=== PATIENT | female | born 1990 | race Caucasian/White ===

== ENCOUNTER 2018-07-25 12:53 | Outpatient (CLI) | payer OTHER ==
[2018-07-25] MEDS ORDERED: PREN-21 PO (16:14)
--- NOTE | 2018-07-25 16:27 | PN ---
Triage Information Date/Time July 25, 2018 Reason for visit: Patient here was sent from the office for RhoGam injection. Weeks of Gestation 28 weeks and 3 days /Para 1 para 0 Diabetes: none Hypertention: none Additional information 27-year-old with IUP at 28 weeks and 3 days with Rh- was sent from the clinic for RhoGam injection. Patient denies any vaginal bleeding during this . She denies any leaking of fluid decreased movement or uterine contractions. No complaint today. Objective Heart Rate: 130's Heart Rate Comments Appropriate for gestational age and category 1 Exam General appearance: Alert and oriented x4 does not appear to be in any acute distress obese Abdomen: Soft, gravid, fundal height appears to be consistent with gestational age NST: Appropriate for gestational age and category 1 No contraction of the monitor noted Blood group and type and screen was sent. Rh-, antibody screen negative Disposition: Discharge Assessment/Plan IUP at 28 weeks and 3 days Rh- Repeat blood type and antibody screen done today confirms that she is Rh- as well as antibody screen is negative No bleeding episodes during this Due for RhoGam injection. Based on ACOG guidelines RhoGam injection was given labor precautions kick count and bleeding precaution was given Patient advised to inform her primary OB office about this visit today and to keep her follow-up appointments Return to triage as needed for any concern including abnormal vaginal bleeding, uterine contraction, decreased movement or any other concerns ALMAS DYER MD Jul 25, 2018 16:27
--- NOTE | 2018-07-25 16:28 | TRIAGE ---
OB Triage Datetime Report Generated by CPN: 07/25/2018 16:27 Datetime: 07/25/2018 14:41 Time of Arrival: 07/25/2018 12:31 EGA: 28.3 Arrived By: Ambulatory Arrived From: Office Chief Complaint: Here from office for Rhogam injection Movement: Present Contractions: Denies/Absent Rupture of Membranes: Denies Vaginal Bleeding: Normal Show Vaginal Discharge: Denies Recent Sexual Intercouse: Denies Abdominal Trauma: Not Applicable Patient Complaints: None Time Provider Notified: 07/25/2018 16:05 Provider Notified: MD [place] Initial Plan: Rhogam injection, NST Datetime: 07/25/2018 14:33 Comments: NST DONE Datetime: 07/25/2018 14:32 Labor Evaluation Monitor Mode: External Resting Tone [place]: Relaxed Heart Rate FHR Baseline Rate: 145 Monitor Mode: External US FHR Baseline Changes: No Baseline Change Variability: Moderate 6-25 bpm Accelerations: 15X15 Decelerations: None Category: Category I Pain Assessment Pain Presence: None/Denies Datetime: 07/25/2018 14:08 Temperature Route: Oral Datetime: 07/25/2018 14:05 Assessment Type: Triage Maternal Assessment Level of Consciousness: Fully Conscious DTR's/Clonus: DTRs 2+; No Clonus Headache: Denies Blurred Vision: No Respiratory Effort: Unlabored; Regular Rhythm; Equal Expansion Breath Sounds, Left: Clear and Equal Breath Sounds, Right: Clear and Equal Nausea/Vomiting: Denies RUQ Epigastric Pain: Denies Lower Extremities Edema: Bilateral Lower Extremities Degree: 1+ Upper Extremities Edema: Bilateral Upper Extremities Degree: 1+ Facial Edema: None Fall Risk Assessment History of Falling: (0) No Secondary Diagnosis: (0) No Ambulatory Aid: (0) Bedrest/Nurse Assist IV Therapy: (0) No Gait: (0) Normal/Bedrest/Immobile Mental Status: (0) Oriented to Own Ability Fall Score: 0 Fall Risk Score Definition: No Risk: No action required Datetime: 07/25/2018 13:59 Comments: NST started Datetime: 07/25/2018 13:57 Stage of : OB Triage
== END 2018-07-25 16:20 | disposition home or self-care (01) ==
LOC: EDBD 12:53 → OBT 12:53 → L-D 12:55 → OBT 16:20
PROVIDERS: ATTEND Obstetrics & Gynecology
DX: O62.9 Abnormality of forces of labor, unspecified (principal); Z3A.28 28 weeks gestation of pregnancy
CPT/HCPCS: 86850; 86885; 86900; 86901; 96372; J2790; Z7500; G0463

== ENCOUNTER 2018-09-14 11:22 | Inpatient (IN) | payer OTHER ==
[~2018-09-14] VITALS: Ht 167.6 cm; Wt 124.5 kg
[~2018-09-14 11:22] MED LIST: PREN-21 PO
[2018-09-14 11:45] VITALS: BP 130/83; PULSE 121; Ht 167.6 cm; Wt 124.5 kg
[2018-09-14] MEDS: CEFAZOLIN 1 GM/50 ML (PMX) 50 ML IVPB SCH (16:12)
[2018-09-14] MEDS: LACTATED RINGER'S 1,000 ML IV SCH (16:12)
[2018-09-14] MEDS ORDERED: LIDOCAINE/MYLANTA 40 ML BTL PO ONE (19:00)
[2018-09-15] MEDS: LACTATED RINGER'S 1,000 ML IV SCH ×2 (00:17→08:27)
[2018-09-15] MEDS: CEFAZOLIN 1 GM/50 ML (PMX) 50 ML IVPB SCH ×3 (00:18→13:58)
--- NOTE | 2018-09-15 16:55 | PREOPHP ---
DATE OF ADMISSION: 09/14/2018 HISTORY OF PRESENT ILLNESS: This is a 28-year-old lady, 2, para 0 with 1 spontaneous abortio n, EDC of 10/14/2018 at 35 and 6/7 weeks, admitted to labor and delivery for observation and PIH work up. She had a blood pressure in the clinic of 152/103. She had care in [facility] office a nd the care was uneventful. She has a history of scoliosis and she wants to have a primary . PAST PERSONAL HISTORY: No history of diabetes, TB. She has a history of asthma. ALLERGIES: NO ALLERGIES. SOCIAL HISTORY: The patient does not smoke. She does not drink. MEDICATIONS: She does not take any drugs except her: 1. Iron. 2. Vitamins. GYNECOLOGIC HISTORY: She had menarche at the age of 8, every 28 days interval, 3 to 4 days duration and moderate in amount. FAMILY HISTORY: Grandmother on mother's side has diabetes. Family history of hypertension. OBSTETRIC HISTORY: She is 2, para 0. She had 1 spontaneous in 2002 at 1-1/2 months . REVIEW OF SYSTEMS: CARDIOVASCULAR: No chest pain. RESPIRATORY: No cough. GASTROINTESTINAL: No diarrhea, no vomiting. GENITOURINARY: No dysuria. PHYSICAL EXAMINATION: GENERAL: Reveals a conscious, coherent lady, in no acute distress. VITAL SIGNS: Her blood pressure on admission was 140/80, pulse rate 80 per minute, respirations 16 p er minute. BREASTS, HEART AND LUNGS: Within normal limits. ABDOMEN: Soft. Fundic height is 37 cm. heart tones are 140 per minute. PELVIC: Revealed the cervix to be closed. EXTREMITIES: 1+ pedal edema. Deep tendon reflexes are normal. ADMITTING DIAGNOSES: 1. A 35 and 6/7 weeks' intrauterine . 2. Rule out -induced hypertension. PLAN: The patient was planned to have PIH workup and 24-hour urine collection. The plans were expla ined to the patient and she understood everything totally. The risks, benefits and alternatives were discussed with her as well. Dictated By: JEWEL CHERRY/NTS Conf#: [id number] DID#: [id number]
--- NOTE | 2018-09-15 17:30 | DS ---
DATE OF ADMISSION: 09/14/2018 DATE OF DISCHARGE: 09/15/2018 HISTORY OF PRESENT ILLNESS: See dictated history and physical. PHYSICAL EXAMINATION: See dictated history and physical. ADMITTING DIAGNOSES: 1. A 35 and 6/7 weeks' intrauterine . 2. Rule out -induced hypertension. HOSPITAL COURSE: The patient was observed in the hospital. She was put on bed rest. Blood pressure was monitored and her blood pressure was always below 140/90. She had 24-hour urine collection and it was 170. The patient felt well. No headache, no contractions. No blurring of vision, no epigast jordan pain. She did not get any betamethasone. She received 4 doses of Ancef for her urinary tract in fection. She was discharged home on the first day of observation on general diet and activity was re stricted. She was counseled. She was instructed. She was told to come back to the clinic in 4 days . FINAL DIAGNOSES: 1. A 36 weeks' intrauterine . 2. Urinary tract infection. 3. Mild -induced hypertension. Dictated By: JEWEL CHERRY/MAX Conf#: [id number] DID#: [id number]
== END 2018-09-15 15:30 | disposition home or self-care (01) | DRG 832 ==
LOC: OBT 11:22 → L-D 11:23 → OBT 14:15 → L-D 14:15
PROVIDERS: ADMIT Obstetrics & Gynecology; ATTEND Obstetrics & Gynecology
DX: O13.3 Gestational [pregnancy-induced] hypertension without significant proteinuria, third trimester (principal); O23.43 Unspecified infection of urinary tract in pregnancy, third trimester; Z3A.36 36 weeks gestation of pregnancy
CPT/HCPCS: 76815; 76818; 80053; 81001; 82575; 84156; 84560; 85025; 85049; 85384; 85610; 85670; 85730; 87086; G0463; J0690; J7120

== ENCOUNTER 2018-10-02 11:43 | Inpatient (IN) | payer OTHER ==
[~2018-10-02] VITALS: Ht 167.6 cm; Wt 124.9 kg
[2018-10-02] MEDS ORDERED: METHYLERGONOVINE 0.2 MG INJ IM PRN ×2 (12:00→19:00)
[2018-10-02] MEDS ORDERED: OXYTOCIN 30 UNITS/LR 500 ML IV PRN ×2 (12:00→19:00)
[2018-10-02] MEDS ORDERED: OXYTOCIN 30 UNITS/LR 500 ML IV SCH ×2 (12:00→18:58)
[2018-10-02] MEDS ORDERED: CLINDAMYCIN 900 MG/D5W (PMX) 50 ML IVPB SCH (12:00)
[2018-10-02] MEDS ORDERED: MISOPROSTOL 200 MCG TAB PR PRN ×2 (12:00→19:00)
[2018-10-02] MEDS ORDERED: CARBOPROST 250 MCG INJ IM PRN ×2 (12:00→19:00)
[2018-10-02 12:34] VITALS: Ht 167.6 cm; Wt 124.9 kg
[2018-10-02] MEDS: LACTATED RINGER'S 1,000 ML IV SCH ×2 (13:03→16:29)
--- NOTE | 2018-10-02 15:25 | PREAC ---
Date/Time of Note Date/Time of Note DATE: 10/02/18 TIME: 15:24 Anesthesia Eval and Record Evaluation Time Pre-Procedure Interview DATE: 10/02/18 TIME: 15:24 Age 28 Sex female NPO: 8 hrs Preoperative diagnosis IUP 38 w Planned procedure c section Past Medical History Past Medical History: Includes Musculoskeletal: Other (scleiosis) GI: Morbid obesity Surgery & Anesthesia Issues No known issue Meds Anticoagulation: No Beta Anthony within 24 hr: No Reason Beta Anthony not given: Pt. not on B-Anthony Reported Medications [id number]/Iron Fumarate/FA/Dss ( 19 Tablet) 1 Each Tablet, 1 EACH PO, TAB 07/25/18 Current Medications Lactated Ringer's 1,000 ml @ 125 mls/hr Q8H IV Last administered on 10/02/18at 13:03; Admin Dose 125 MLS/HR; Start 10/02/18 at 11:47 Oxytocin/Lactated Ringer's 500 ml @ 125 mls/hr POST IV ; Start 10/02/18 at 12:00 Oxytocin/Lactated Ringer's 500 ml @ 0 mls/hr ONCE PRN IV .VAGINAL BLEEDING; Start 10/02/18 at 12:00 Methylergonovine Maleate (Methergine) 0.2 mg ONCE PRN IM .VAGINAL BLEEDING; Start 10/02/18 at 12:00 Carboprost Tromethamine (Hemabate) 250 mcg ONCE PRN IM .VAGINAL BLEEDING; Start 10/02/18 at 12:00 Misoprostol (Cytotec) 1,000 mcg ONCE PRN [place] .VAGINAL BLEEDING; Start 10/02/18 at 12:00 Citric Acid/ Sodium Citrate (Bicitra) 30 ml ONCE ONCE PO ; Start 10/02/18 at 15:30; Stop 10/02/18 at 15:31; Status UNV Meds reviewed: Yes Allergies Coded Allergies: Penicillins (Verified Allergy, Severe, rash, 09/14/18) VOMITTING AND DIARRHEA tramadol (Verified Allergy, Severe, 09/14/18) amoxicillin (Verified Allergy, Mild, rash, 08/22/18) Uncoded Allergies: penoicillin (Allergy, Mild, 07/25/18) rash (Adverse Reaction, Mild, 08/22/18) Allergies Reviewed: Yes Labs/Studies Labs Reviewed: Reviewed by anesthesiologist Result Diagram: 10/02/18 1245 10/02/18 1245 Laboratory Tests 10/02/18 12:45 Blood Bank Test 10/02/18 12:45 Antibody Screen NEGATIVE Blood Type A NEGATIVE Rh Immune Globulin Candidate NO test: Positive Studies: ECG (n/a), CXR (n/a) Pre-procedure Exam Airway: Adequate thyromental dist Mallampati: Mallampati III Teeth: Normal Lung: Normal Heart: Normal ASA Physical Status ASA physical status: 3 Emergency: None Planned Anesthetic General/MAC: ETT Neuraxial: Spinal Pre-operative Attestations Prior to commencing anesthesia and surgery, the patient was re-evaluated, there was verification of: *The patient's identity *The results of appropriate recent lab work and preoperative vital signs *The above evaluation not changing prior to induction *Anesthetic plan, risk benefits, alternative and complications discussed with patient/family; questions answered; patient/family understands, accepts and wishes to proceed. CATHY PALUMBO MD Oct 02, 2018 15:25
[2018-10-02] MEDS ORDERED: CITRIC ACID/NA CITRATE 30 ML CUP PO ONE (15:30)
[2018-10-02] MEDS ORDERED: ONDANSETRON 4 MG INJ ONE (17:09)
[2018-10-02] MEDS ORDERED: morphine SULFATE/PF (10 MG/10 ML) INJ ONE (17:09)
[2018-10-02] MEDS ORDERED: METOCLOPRAMIDE 10 MG INJ ONE (17:09)
[2018-10-02] MEDS ORDERED: KETOROLAC 30 MG INJ ONE (17:09)
--- NOTE | 2018-10-02 17:33 | PREOPHP ---
DATE OF ADMISSION: 10/02/2018 HISTORY OF PRESENT ILLNESS: This is a 28-year-old lady, 2, para 0 with 1 spontaneous abortio n, EDC of 10/14/2018 at 38-2/7 weeks, admitted to labor and delivery area in early labor for primary . The patient desires to have for history of scoliosis. She also has -i nduced hypertension and on no medication. Dr. Hennessy advised her to be delivered at around 38 weeks b ecause of her problem, but she is having contractions every 4 to 5 minutes. She had care in my [facility] office and the care was uneventful and being taken care of for mild -in duced hypertension. PAST PERSONAL HISTORY: No history of TB, asthma. ALLERGIES: NO ALLERGIES. SOCIAL HISTORY: The patient does not smoke. She does not drink. MEDICATIONS: She does not take any drugs except her: 1. Iron. 2. Vitamins. GYNECOLOGIC HISTORY: She had menarche at the age of 10, every 28 days interval, 3 to 4 days duration and moderate in amount. FAMILY HISTORY: Noncontributory. OBSTETRIC HISTORY: She is 2, para 1 with 1 . REVIEW OF SYSTEMS: CARDIOVASCULAR: No chest pains. RESPIRATORY: No cough. GASTROINTESTINAL: No diarrhea. No vomiting. GENITOURINARY: No dysuria. PHYSICAL EXAMINATION: GENERAL: Reveals a conscious, coherent lady and in no acute distress. VITAL SIGNS: Her blood pressure 140/80, pulse rate 80 per minute, respirations 16 per minute. BREASTS, HEART AND LUNGS: Within normal limits. ABDOMEN: Soft and obese. Fundic height 39 cm, weight is 265 pounds. PELVIC: Revealed the cervix to be closed, station floating in cephalic presentation with the bag of water intact. EXTREMITIES: No pedal edema. ADMITTING DIAGNOSES: 1. A 38-2/7 weeks' intrauterine in early labor. 2. Obesity. 3. Mild -induced hypertension. PLAN: The patient was planned to have the above procedure of primary . The procedures were explained to the patient and to her and both understood everything totally. The risks, bene fits and alternatives were discussed with her as well. The case was discussed with the anesthesiolog ist as well. If she cannot put the spinal then she will be put under general anesthesia. Dictated By: JEWEL CHERRY/MAX Conf#: [id number] [facility]#: [id number]
[2018-10-02] MEDS ORDERED: OXYTOCIN 30 UNITS/LR 500 ML IV ONE (18:19)
[2018-10-02] MEDS ORDERED: PHENYLephrine (100 MCG/ML) 10ML SYG ONE (18:22)
[2018-10-02] MEDS ORDERED: LACTATED RINGER'S 1,000 ML IV SCH (18:58)
--- NOTE | 2018-10-02 18:58 | OPPN ---
Date/Time of Note Date/Time of Note DATE: 10/02/18 TIME: 18:55 Operative Report Planned Procedure Procedure date Oct 02, 2018 Procedure(s) PRIMARY CSECTION Performed by see signature line Wire Taper: MASHA CRISTOBAL 2nd Wire Taper none Pre-procedure diagnosis 38 WEEKS IUP PIH SCOLIOSIS [id number] Anesthesia Type: [id number] spinal Post-Procedure Post-procedure diagnosis 38 WEEKS IUP PIH SCOLIOSIS Findings Live Baby GIRL, Apgars 9and 9, weight 7LBS 14OZ Estimated Blood Loss: 500 - 600 mls Specimen(s) none Grafts/Implant(s) PLACENTA Complication(s) none JEWEL AZEVEDO MD Oct 02, 2018 18:58
[2018-10-02] MEDS ORDERED: LANOLIN HPA 1 PKT TOP PRN (19:00)
[2018-10-02] MEDS ORDERED: METHYLERGONOVINE 0.2 MG TAB PO PRN (19:00)
[2018-10-02] MEDS ORDERED: KETOROLAC 30 MG INJ IV PRN (20:00)
[2018-10-02] MEDS ORDERED: DIPHENHYDRAMINE 50 MG INJ IV PRN (20:00)
[2018-10-02] MEDS ORDERED: NALOXONE (0.4 MG/ML) INJ IV PRN (20:00)
[2018-10-02] MEDS ORDERED: ONDANSETRON 4 MG INJ IV PRN ×2 (20:00)
[2018-10-02] MEDS ORDERED: morphine 2 MG INJ IV PRN ×3 (20:00)
[2018-10-02] MEDS ORDERED: morphine (1 MG/ML) 10ML SYRINGE IV PRN ×3 (20:00)
[2018-10-02] MEDS: SENNA/DOCUSATE NA (8.6MG/50MG) TAB PO SCH (21:00)
[2018-10-02 21:20] VITALS: BP 132/70; PULSE 75; RESP 20
[2018-10-03] MEDS: LACTATED RINGER'S 1,000 ML IV SCH ×3 (03:47→19:47)
[2018-10-03 04:25] VITALS: BP 121/71; PULSE 98; RESP 20
[2018-10-03 08:00] VITALS: BP 107/60; PULSE 107; RESP 20
[2018-10-03] MEDS: SENNA/DOCUSATE NA (8.6MG/50MG) TAB PO SCH ×2 (10:01→21:48)
[2018-10-03 12:00] VITALS: BP 108/62; PULSE 107; RESP 20
[2018-10-03 16:00] VITALS: BP 128/70; PULSE 101; RESP 19
--- NOTE | 2018-10-03 19:36 | PN ---
Date/Time of Note Date/Time of Note DATE: 10/03/18 TIME: 19:34 Assessment/Plan VTE Prophylaxis Risk score (from Ns)>0 risk: 3 SCD applied (from Ns): Yes Pharmacological prophylaxis: NA/contraindicated Pharm contraindication: low risk/ambulating Lines/Catheters IV Catheter Type (from Nrs): Saline Lock Assessment/Plan Assessment/Plan POSTCSECTION DAY 1 ORDERED ADVANCE DIET TOLERATED CBC ON 3RD POSTOP DAY Result Diagram: 10/03/18 0639 10/03/18 0639 Results 24hrs Laboratory Tests Test 10/03/18 06:39 10/03/18 06:44 White Blood Count 17.9 #H Red Blood Count 3.63 L Hemoglobin 11.0 L Hematocrit 32.6 L Mean Corpuscular Volume 89.8 Mean Corpuscular Hemoglobin 30.3 Mean Corpuscular Hemoglobin Concent 33.7 Red Cell Distribution Width 13.3 Platelet Count 322 # Mean Platelet Volume 9.5 Immature Granulocytes % 0.600 H Neutrophils % 71.7 Lymphocytes % 19.8 Monocytes % 6.4 Eosinophils % 0.9 Basophils % 0.6 Nucleated Red Blood Cells % 0.0 Immature Granulocytes # 0.100 H Neutrophils # 12.8 H Lymphocytes # 3.5 H Monocytes # 1.2 H Eosinophils # 0.2 Basophils # 0.1 Nucleated Red Blood Cells # 0.0 Sodium Level 135 Potassium Level 4.1 Chloride Level 105 Carbon Dioxide Level 24 Anion Gap 6 Blood Urea Nitrogen 9 Creatinine 0.62 Est Glomerular Filtrat Rate mL/min > 60 Glucose Level 81 Calcium Level 8.9 Lab Scanned Report REFERENCE LAB Subjective 24 Hr Interval Summary Free Text/Dictation POST CSECTION DAY 1 COMPLAIN OF INCISIONAL PAINS GOOD URINE OUTPUT PASSING GAS PER RECTUM NO BOWEL MOVEMENT YET Exam/Review of Systems Exam Vitals Vital Signs Date Temp Pulse Resp B/P (MAP) Pulse Ox O2 O2 Flow FiO2 Time Delivery Rate 10/03/18 98.1 101 19 128/70 98 Room Air 16:00 (89) Intake and Output 10/02/18 10/02/18 10/03/18 1515:00 23:00 07:00 IntakeIntake Total 2000 ml OutputOutput Total 105 ml 400 ml BalanceBalance 1895 ml -400 ml Exam VITAL SIGNS STABLE: YES AFEBRILE: YES BREAST NOT ENGORGED, NON-TENDER, NO APPRECIABLE MASS: YES LUNGS CLEAR, NO RALES, WHEEZES, RHONCHI: YES SINUS RHYTHM WITHOUT MURMUR: YES ABDOMEN: NON-TENDER FUNDUS: BELOW UMBILICUS BOWEL SOUNDS: PRESENT UTERUS: FIRM INCISION (CLEAN, DRY, AND INTACT): YES LOCHIA: LIGHT DEEP TENDON REFLEXES: 0 EXTREMITIES: NO CALF TENDERNESS EDEMA SCALE: NONE Results Results 24hrs Laboratory Tests Test 10/03/18 06:39 10/03/18 06:44 White Blood Count 17.9 #H Red Blood Count 3.63 L Hemoglobin 11.0 L Hematocrit 32.6 L Mean Corpuscular Volume 89.8 Mean Corpuscular Hemoglobin 30.3 Mean Corpuscular Hemoglobin Concent 33.7 Red Cell Distribution Width 13.3 Platelet Count 322 # Mean Platelet Volume 9.5 Immature Granulocytes % 0.600 H Neutrophils % 71.7 Lymphocytes % 19.8 Monocytes % 6.4 Eosinophils % 0.9 Basophils % 0.6 Nucleated Red Blood Cells % 0.0 Immature Granulocytes # 0.100 H Neutrophils # 12.8 H Lymphocytes # 3.5 H Monocytes # 1.2 H Eosinophils # 0.2 Basophils # 0.1 Nucleated Red Blood Cells # 0.0 Sodium Level 135 Potassium Level 4.1 Chloride Level 105 Carbon Dioxide Level 24 Anion Gap 6 Blood Urea Nitrogen 9 Creatinine 0.62 Est Glomerular Filtrat Rate mL/min > 60 Glucose Level 81 Calcium Level 8.9 Lab Scanned Report REFERENCE LAB Medications Medication Current Medications Lactated Ringer's 1,000 ml @ 125 mls/hr Q8H IV Last administered on 10/03/18at 12:34; Admin Dose 125 MLS/HR; Start 10/02/18 at 11:47 Oxytocin/Lactated Ringer's 500 ml @ 125 mls/hr POST IV ; Start 10/02/18 at 12:00 Oxytocin/Lactated Ringer's 500 ml @ 0 mls/hr ONCE PRN IV .VAGINAL BLEEDING; Start 10/02/18 at 12:00 Methylergonovine Maleate (Methergine) 0.2 mg ONCE PRN IM .VAGINAL BLEEDING; Start 10/02/18 at 12:00 Carboprost Tromethamine (Hemabate) 250 mcg ONCE PRN IM .VAGINAL BLEEDING; Start 10/02/18 at 12:00 Misoprostol (Cytotec) 1,000 mcg ONCE PRN [place] .VAGINAL BLEEDING; Start 10/02/18 at 12:00 Methylergonovine Maleate (Methergine) 0.2 mg Q6H PRN PO .VAGINAL BLEEDING; Start 10/02/18 at 19:00 Ibuprofen (Motrin) 800 mg Q8 PRN PO MILD PAIN LEVEL 1-3; Start 10/02/18 at 19:00 Simethicone (Mylicon) 160 mg Q8H PRN PO .GAS; Start 10/02/18 at 19:00 Senna/Docusate Sodium (Senokot-S) 1 tab BID PO Last administered on 10/03/18at 10:01; Admin Dose 1 TAB; Start 10/02/18 at 21:00 Lanolin (Lanolin Hpa) 1 applic BEDSIDE MEDICATION PRN TOP .NIPPLES; Start 10/02/18 at 19:00 Diphtheria/ Tetanus/Acell Pertussis (Adacel) 0.5 ml ONCE ONCE IM* ; Start 10/05 at 09:00; Stop 10/05/18 at 09:01 Measles/Mumps/ Rubella Vaccine Live (Mmr Ii Vaccine) 0.5 ml ONCE ONCE SC* ; Start 10/05/18 at 09:00; Stop 10/05/18 at 09:01 Oxytocin/Lactated Ringer's 500 ml @ 0 mls/hr ONCE PRN IV .VAGINAL BLEEDING; Start 10/02/18 at 19:00 Methylergonovine Maleate (Methergine) 0.2 mg ONCE PRN IM .VAGINAL BLEEDING; Start 10/02/18 at 19:00 Carboprost Tromethamine (Hemabate) 250 mcg ONCE PRN IM .VAGINAL BLEEDING; Start 10/02/18 at 19:00 Misoprostol (Cytotec) 1,000 mcg ONCE PRN [place] .VAGINAL BLEEDING; Start 10/02/18 at 19:00 Morphine Sulfate (morphine (REC)) 2 mg PACU ORDER PRN IV MILD PAIN 1-3; Start 10/02/18 at 20:00 Naloxone HCl (Narcan) 0.1 mg Q2M PRN IV .RESP RATE; Start 10/02/18 at 20:00; Stop 10/03/18 at 19:59 Ketorolac Tromethamine (Toradol) 30 mg Q6H PRN IV PAIN AFTER CSECTION Last administered on 10/03/18at 12:33; Admin Dose 30 MG; Start 10/02/18 at 20:00; Stop 10/03/18 at 19:59 Morphine Sulfate (morphine) 3 mg Q2 PRN IV .BREAKTHROUGH PAIN; Start 10/02/18 at 20:00; Stop 10/03/18 at 19:59 Morphine Sulfate (morphine) 2 mg Q3H PRN IV .PAIN 1-5; Start 10/02/18 at 20:00; Stop 10/03/18 at 19:59 Morphine Sulfate (morphine) 4 mg Q3H PRN IV .PAIN 6-10; Start 10/02/18 at 20:00; Stop 10/03/18 at 19:59 Diphenhydramine HCl (Benadryl) 25 mg Q6H PRN IV .ITCHING Last administered on 10/02/18at 22:31; Admin Dose 25 MG; Start 10/02/18 at 20:00; Stop 10/03/18 at 19:59 Ondansetron HCl (Zofran Inj) 4 mg Q6H PRN IV .NAUSEA/VOMITING; Start 10/02/18 at 20:00; Stop 10/03/18 at 19:59 JEWEL AZEVEDO MD Oct 03, 2018 19:36
[2018-10-03 19:45] VITALS: BP 117/74; PULSE 108; RESP 16
--- NOTE | 2018-10-03 21:26 | PAC ---
Date/Time of Note Date/Time of Note DATE: 10/03/18 TIME: 21:26 Post-Anesthesia Notes Post-Anesthesia Note Last documented vital signs Vital Signs Date Temp Pulse Resp B/P (MAP) Pulse Ox O2 O2 Flow FiO2 Time Delivery Rate 10/03/18 98.1 101 19 128/70 98 Room Air 16:00 (89) Activity: WNL Respiratory function: WNL Cardiovascular function: WNL Mental status: Baseline Pain reasonably controlled: Yes Hydration appropriate: Yes Nausea/Vomiting absent: No CATHY PALUMBO MD Oct 03, 2018 21:26
--- NOTE | 2018-10-03 21:32 | OPPN ---
Date/Time of Note Date/Time of Note DATE: 10/03/18 TIME: 21:30 Anesthesia Follow up Anesthesia Follow up Last documented vital signs Vital Signs Date Temp Pulse Resp B/P (MAP) Pulse Ox O2 O2 Flow FiO2 Time Delivery Rate 10/03/18 98.1 101 19 128/70 98 Room Air 16:00 (89) Respiratory function: WNL Comments A 28 year F POD#1 under duramorph for post op pain is doing fine. No pain itching, headache, N/V. CATHY PALUMBO MD Oct 03, 2018 21:32
[2018-10-03] MEDS: IBUPROFEN 800 MG TAB PO PRN (22:20)
[2018-10-04] MEDS: LACTATED RINGER'S 1,000 ML IV SCH (03:47)
[2018-10-04 04:25] VITALS: BP 101/63; PULSE 84; RESP 16
[2018-10-04] MEDS: IBUPROFEN 800 MG TAB PO PRN ×3 (06:26→21:00)
[2018-10-04 08:25] VITALS: BP 125/74; PULSE 114; RESP 20
[2018-10-04] MEDS: SENNA/DOCUSATE NA (8.6MG/50MG) TAB PO SCH ×2 (09:00→21:00)
[2018-10-04 16:00] VITALS: BP 132/83; PULSE 108; RESP 18
--- NOTE | 2018-10-04 16:43 | PN ---
Date/Time of Note Date/Time of Note DATE: 10/04/18 TIME: 16:41 Assessment/Plan VTE Prophylaxis Risk score (from Nsg)>0 risk: 3 SCD applied (from Nsg): No SCD contraindicated: low risk/ambulating Pharmacological prophylaxis: NA/contraindicated Pharm contraindication: low risk/ambulating Lines/Catheters IV Catheter Type (from Nrsg): Peripheral IV Assessment/Plan Assessment/Plan POST CSECTION DAY 2 HOME TOMORROW CBC TOMORROW COUNSELED INSTRUCTED PRESCRIPTION GIVEN FOR PAIN RETURN TO CLINIC IN 2 WEEKS CALL OFFICE IF THERE IS ANY PROBLEM OR CONCERN CONTINUE WITH VITAMINS OD AND FERROUS SULFATE 325MG PO TID DIET ADVISED Result Diagram: 10/03/1839 10/03/1839 Subjective 24 Hr Interval Summary Free Text/Dictation POST CSECTION DAY 2 LITTLE BOWEL MOVEMENT GOOD URINE OUTPUT FEELS LESS INCISIONAL PAINS Exam/Review of Systems Exam Vitals Vital Signs Date Temp Pulse Resp B/P (MAP) Pulse Ox O2 O2 Flow FiO2 Time Delivery Rate 10/04/18 98.7 114 20 125/74 Room Air 08:25 (91) 10/03/18 98 16:00 Intake and Output 10/03/18 10/03/18 10/04/18 1515:00 23:00 07:00 IntakeIntake Total 1120 ml 200 ml OutputOutput Total 1500 ml 1400 ml 500 ml BalanceBalance -1500 ml -280 ml -300 ml Exam VITAL SIGNS STABLE: YES AFEBRILE: YES BREAST NOT ENGORGED, NON-TENDER, NO APPRECIABLE MASS: YES LUNGS CLEAR, NO RALES, WHEEZES, RHONCHI: YES SINUS RHYTHM WITHOUT MURMUR: YES ABDOMEN: NON-TENDER FUNDUS: BELOW UMBILICUS BOWEL SOUNDS: PRESENT UTERUS: FIRM INCISION (CLEAN, DRY, AND INTACT): YES LOCHIA: LIGHT DEEP TENDON REFLEXES: 0 EXTREMITIES: NO CALF TENDERNESS EDEMA SCALE: NONE Medications Medication Current Medications Oxytocin/Lactated Ringer's 500 ml @ 0 mls/hr ONCE PRN IV .VAGINAL BLEEDING; Start 10/02/18 at 12:00 Methylergonovine Maleate (Methergine) 0.2 mg ONCE PRN IM .VAGINAL BLEEDING; Start 10/02/18 at 12:00 Carboprost Tromethamine (Hemabate) 250 mcg ONCE PRN IM .VAGINAL BLEEDING; Start 10/02/18 at 12:00 Misoprostol (Cytotec) 1,000 mcg ONCE PRN [place] .VAGINAL BLEEDING; Start 10/02/18 at 12:00 Methylergonovine Maleate (Methergine) 0.2 mg Q6H PRN PO .VAGINAL BLEEDING; Start 10/02/18 at 19:00 Ibuprofen (Motrin) 800 mg Q8 PRN PO MILD PAIN LEVEL 1-3 Last administered on 10/04/18at 13:20; Admin Dose 800 MG; Start 10/02/18 at 19:00 Simethicone (Mylicon) 160 mg Q8H PRN PO .GAS Last administered on 10/04/18 09:35; Admin Dose 160 MG; Start 10/02/18 at 19:00 Senna/Docusate Sodium (Senokot-S) 1 tab BID PO Last administered on 10/03/18at 21:48; Admin Dose 1 TAB; Start 10/02/18 at 21:00 Lanolin (Lanolin Hpa) 1 applic BEDSIDE MEDICATION PRN TOP .NIPPLES Last administered on 10/04/18 09:36; Admin Dose 1 APPLIC; Start 10/02/18 at 19:00 Diphtheria/ Tetanus/Acell Pertussis (Adacel) 0.5 ml ONCE ONCE IM* ; Start 10/05/18 at 09:00; Stop 10/05/18 at 09:01 Measles/Mumps/ Rubella Vaccine Live (Mmr Ii Vaccine) 0.5 ml ONCE ONCE SC* ; Start 10/05/18 at 09:00; Stop 10/05/18 at 09:01 Oxytocin/Lactated Ringer's 500 ml @ 0 mls/hr ONCE PRN IV .VAGINAL BLEEDING; Start 10/02/18 at 19:00 Methylergonovine Maleate (Methergine) 0.2 mg ONCE PRN IM .VAGINAL BLEEDING; Start 10/02/18 at 19:00 Carboprost Tromethamine (Hemabate) 250 mcg ONCE PRN IM .VAGINAL BLEEDING; Start 10/02/18 at 19:00 Misoprostol (Cytotec) 1,000 mcg ONCE PRN [place] .VAGINAL BLEEDING; Start 10/02/18 at 19:00 Morphine Sulfate (morphine (REC)) 2 mg PACU ORDER PRN IV MILD PAIN 1-3; Start 10/02/18 at 20:00 JEWEL AZEVEDO MD Oct 04, 2018 16:43
[2018-10-04 19:50] VITALS: BP 119/74; PULSE 110; RESP 18
[2018-10-05 04:00] VITALS: BP 112/76; PULSE 69; PULSE 95; RESP 17
[2018-10-05] MEDS: IBUPROFEN 800 MG TAB PO PRN ×2 (05:11→12:46)
[2018-10-05 08:50] VITALS: BP 123/78; PULSE 99; RESP 20
[2018-10-05] MEDS ORDERED: MEASLES,MUMPS,RUBELLA VACCINE INJ SC* ONE (09:00)
[2018-10-05] MEDS ORDERED: DIPHTH/TET/ACEL PERTUSS (ADULT) 0.5 ML VIAL IM* ONE (09:00)
[2018-10-05] MEDS: SENNA/DOCUSATE NA (8.6MG/50MG) TAB PO SCH (09:00)
--- NOTE | 2018-10-06 16:47 | OPR ---
DATE OF OPERATION: 10/02/2018 PREOPERATIVE DIAGNOSES: 1. A 38 and 2/7 weeks' intrauterine , in labor. 2. History of scoliosis. 3. -induced hypertension. POSTOPERATIVE DIAGNOSES: 1. A 38 and 2/7 weeks' intrauterine , in labor. 2. History of scoliosis. 3. -induced hypertension. OPERATION PERFORMED: Primary low transverse section. SURGEON: Jewel Easley MD STEEL HEATER: Maria T Lynch MD ANESTHESIOLOGIST: Ema Jacob MD ANESTHESIA: Spinal. OPERATIVE TECHNIQUE: Under spinal anesthesia, the patient was prepped and draped in the usual fashio n for abdominal surgery. After checking for the effect of the anesthesia, a Pfannenstiel incision, 1 2 cm skin incision was performed. The incision was carried from the skin up to the fascia. Upon ope scott the skin up to the fascia, small blood vessels were noted to be oozing and these were all cauter ized. Fascia was opened transversely followed by splitting the muscles vertically and the peritoneum vertically. Upon opening the abdominal cavity, the bladder blade was put in place. A small cedric wa s performed from the serosa up to the endometrium and the cedric was carried sideways with the aid of m y 2 fingers. My left hand was inserted in the lower segment of the uterus and the bag of water was r uptured. Clear fluid was noted. Baby's head was delivered with good fundal pressure. Baby's airway s were quickly suctioned with amniotic fluid. There was 1 loop of cord around the baby's neck that n eeds to be released prior to the delivery of the rest of the body of the baby. Baby's cord was clamp ed after 30 seconds. The baby was handed to the NICU team. The placenta was delivered manually and complete. The uterus was exteriorized. The uterus was cleansed with wet lap sponge to make sure luz maria t no membranes were left behind. After correct sponge count, the uterus was closed in the usua l fashion using #1 chromic for the first layer, continuous locking suture was used followed by #1 chr omic for the second layer, imbricating sutures were used. Bleeders were checked and there was no ble eding noted. After checking for any bleeders in which there were none, both tubes and ovaries were i nspected. They were healthy looking. The back of the uterus was checked for any hematoma and there was none noted. The uterus was put back to the pelvic cavity. Once again, uterine incision was chec ked for any bleeders and there was no bleeding noted. After correct sponge count, needle count and i nstrument count as confirmed by the scrubber operator and employee relations specialist, the abdomen was closed in the usual fa shion using 0 Vicryl for the peritoneum, 0 Vicryl for the muscles, for the fascia 0 Vicryl continuous stitch was used followed by few [id number] suture. For the subcutaneous tissue, it was closed with 3-0 Vicryl and the skin was closed with 3-0 Vicryl, subcuticular suture was used. The patient t olerated the procedure well. Estimated blood loss was about 600 mL. Vital signs were stable during and after the delivery. She delivered a healthy baby girl on 10/02/2018 at 17:42, weighing 7 pounds, 14 ounces, 3585 grams, 19.5 inches and Apgars 9 and 9. Dictated By: JEWEL CHERRY/MAX Conf#: [id number] DID#: [id number]
--- NOTE | 2018-10-07 11:24 | DELSUM ---
Delivery Summary A-C Datetime Report Generated by CPN: 10/07/2018 11:20 DELIVERY PERSONNEL Carnival Worker: Ghukasyan, Laura MATERNAL INFORMATION Delivery Anesthesia: Spinal Medications in Delivery: see anesthsia record Delivery QBL (ml): 600 Placenta Cultured: No Maternal Complications: None RN Comments: P C/S DUE TO HIGH BP'S LABOR SUMMARY EDC: 10/14/2018 00:00 No. Babies in Womb: 1 Attempted: No Labor Anesthesia: None LABOR INFORMATION Reason for Induction: Not Applicable Oxytocin: N/A Group B Beta Strep: Negative Antibiotics # of Doses: 1 Antibiotics Time of Last Dose: 10/02/2018 17:20 Steroids Given: None Reason Steroids Not Administered: Not Applicable MEMBRANES Membranes Rupture Method: Artificial Rupture of Membranes: 10/02/2018 17:41 Length of Rupture (hr): 0.02 Amniotic Fluid Color: Clear Amniotic Fluid Amount: Small Amniotic Fluid Odor: None STAGES OF LABOR Stage 3 hr: 0 Stage 3 min: 1 CSECTION DELIVERY Primary Indication: Severe PIH, Unfavor Cervix CSection Urgency: Non Elective CSection Incidence: Primary Labor: No Labor Elective: Nonelective CSection Incision: Lower Uterine Transverse BABY A INFORMATION Infant Delivery Date/Time: 10/02/2018 17:42 Method of Delivery: Born in Route : No : N/A Forceps: N/A Vacuum Extraction: N/A Shoulder Dystocia : N/A SHOULDER DYSTOCIA BABY A Delivery Date/Time: 10/02/2018 17:42 PRESENTATION/POSITION BABY A Presentation: Cephalic Cephalic Presentation: Vertex Vertex Position: Left Occipital Anterior Breech Presentation: N/A PLACENTA INFORMATION BABY A Placenta Delivery Time : 10/02/2018 17:43 Placenta Method of Delivery: Manual Removal Placenta Status: Delivered SCORES BABY A Heart Rate 1 min: >100 bpm Resp Effort 1 min: Good Cry Reflex Irritability 1 min: Cough/Sneeze/Pulls Away Muscle Tone 1 min: Active Motion Color 1 min: Body [place], Extremit Blue Resuscitation Effort 1 min: Tactile Stimulation SCORE 1 MIN: 9 Heart Rate 5 min: >100 bpm Resp Effort 5 min: Good Cry Reflex Irritability 5 min: Cough/Sneeze/Pulls Away Muscle Tone 5 min: Active Motion Color 5 min: Body [place], Extremit Blue Resuscitation Effort 5 min: Tactile Stimulation SCORE 5 MIN: 9 Heart Rate 10 min: >100 bpm Resp Effort 10 min: Good Cry Reflex Irritability 10 min: Cough/Sneeze/Pulls Away Muscle Tone 10 min: Active Motion Color 10 min: Body [place], Extremit Blue SCORE 10 MIN: 9 Heart Rate 15 min: >100 bpm Resp Effort 15 min: Good Cry Reflex Irritability 15 min: Cough/Sneeze/Pulls Away Muscle Tone 15 min: Active Motion Color 15 min: Body [place], Extremit Blue SCORE 15 MIN: 9 Heart Rate 20 min: >100 bpm Resp Effort 20 min: Good Cry Reflex Irritability 20 min: Cough/Sneeze/Pulls Away Muscle Tone 20 min: Active Motion Color 20 min: Body [place], Extremit Blue SCORE 20 MIN: 9 INFORMATION BABY A Gestational Age at Delivery: 38.2 Gestational Status: Early Term- 37- 38.6 Weeks Outcome : Liveborn Infant Condition : Stable Infant Sex: Female IDENTIFICATION/MEDS BABY A ID Band Number: [id number] ID Band Location: Right Leg; Left Arm Sensor Applied: Yes Sensor Number: [id number] Sensor Location : Cord Clamp Vitamin K Given : Not Given Erythromycin Given: Not Given WEIGHT/LENGTH BABY A Infant Birthweight (gm): 3585 Infant Weight (lb): 7 Infant Weight (oz): 14 Infant Length (in): 19.50 Length (cm): 49.53 CORD INFORMATION BABY A No. Cord Vessels: 3 Nuchal Cord : N/A Cord Blood Taken: Yes Infant Suction: Mouth; Nose ASSESSMENT BABY A Infant Complications: None Physical Findings at Delivery: Within Normal Limits Infant Respirations: Appears Normal Product Engineering Manager/ALS Called : No Care By: HINA ROGEL Transferred To: Remains with Mother
--- NOTE | 2018-10-12 02:55 | DS ---
DATE OF ADMISSION: 10/02/2018 DATE OF DISCHARGE: 10/05/2018 This is a 28-year-old lady, 2, para 0 with 1 spontaneous , EDC 10/14/2018 at 38 and 2 /7 weeks, admitted for primary for scoliosis. HISTORY OF PRESENT ILLNESS: See dictated history and physical. PHYSICAL EXAMINATION: See dictated history and physical. ADMITTING DIAGNOSIS: A 38 and 2/7 weeks intrauterine in labor, obesity, history of scolios is, mild -induced hypertension. HOSPITAL COURSE: The patient underwent a primary low transverse section for -induc ed hypertension, obesity and history of scoliosis on 10/02/2018. She tolerated the procedure well. She did have good postoperative course. The diet was advanced from liquid to general diet. She had good bowel movement postoperatively. The blood pressure was normal postop. She has less pain on the third postoperative day. She was discharged home on the third postoperative day on general diet and activity was restricted. She was counseled. She was instructed. She was given prescription for pa in. The hematocrit on discharge is 34.3 and hemoglobin is 11.1. FINAL DIAGNOSES: A 38 and 2/7 weeks intrauterine in labor, obesity and history of scoliosi s, the patient desired , mild -induced hypertension and delivered. Dictated By: JEWEL CHERRY/MAX Conf#: [id number] DID#: [id number]
== END 2018-10-05 13:43 | disposition home or self-care (01) | DRG 788 ==
LOC: OBT 11:43 → L-D 11:44 → OBT 11:45 → L-D 11:45 → PP1 21:27
PROVIDERS: ADMIT Obstetrics & Gynecology; ATTEND Obstetrics & Gynecology
PROC: 4A1HXCZ Monitoring of Products of Conception, Cardiac Rate, External Approach (ICD-10-PCS; 2018-10-02)
PROC: 10D00Z1 Extraction of Products of Conception, Low, Open Approach (ICD-10-PCS; principal; 2018-10-02 16:00)
DX: O75.82 Onset (spontaneous) of labor after 37 completed weeks of gestation but before 39 completed weeks gestation, with delivery by (planned) cesarean section (principal); O99.89 Other specified diseases and conditions complicating pregnancy, childbirth and the puerperium; M41.9 Scoliosis, unspecified; O13.4 Gestational [pregnancy-induced] hypertension without significant proteinuria, complicating childbirth; O99.214 Obesity complicating childbirth; Z3A.38 38 weeks gestation of pregnancy; Z37.0 Single live birth
CPT/HCPCS: 80048; 80053; 81001; 84560; 85025; 85384; 85610; 85730; 86592; 86850; 86885; 86900; 86901; 87340; 99464; J1200; J1885; J2274; J2370; J2405; J2590; J2765; J2790; J7120